=== PATIENT | male | born 1995 | race Caucasian/White ===

== ENCOUNTER 2018-06-20 16:11 | Emergency (ER) | payer OTHER ==
[~2018-06-20] VITALS: Ht 188 cm; Wt 86.4 kg
[2018-06-20 16:19] VITALS: BP 130/85
== END 2018-06-20 17:20 | disposition home or self-care (01) ==
LOC: ER 16:11
DX: S05.12XA Contusion of eyeball and orbital tissues, left eye, initial encounter (principal); S05.11XA Contusion of eyeball and orbital tissues, right eye, initial encounter; X58.XXXA Exposure to other specified factors, initial encounter; Y93.89 Activity, other specified; Y92.89 Other specified places as the place of occurrence of the external cause; Y99.8 Other external cause status
CPT/HCPCS: 99281

== ENCOUNTER 2018-06-23 13:55 | Emergency (ER) | payer OTHER ==
[~2018-06-23] VITALS: Ht 188 cm; Wt 88.5 kg
[2018-06-23 14:12] VITALS: BP 135/57
== END 2018-06-23 14:58 | disposition home or self-care (01) ==
LOC: ER 13:56
DX: H59.34 Postprocedural hematoma of eye and adnexa following other procedure (principal); H10.89 Other conjunctivitis; Z98.890 Other specified postprocedural states
CPT/HCPCS: 99281

== ENCOUNTER 2021-11-11 22:30 | Emergency (ER) | payer MEDICAID, OTHER ==
[~2021-11-11] VITALS: Ht 188 cm; Wt 78.2 kg
[2021-11-11] MEDS ORDERED: HYDR100T27 PO (23:35)
[2021-11-11] MEDS ORDERED: SERT-434 PO (23:35)
[2021-11-11] MEDS ORDERED: morphine 4 MG/ML inj SYRINge IV ONE (23:50)
[2021-11-11] MEDS ORDERED: ketorolac tromethamine 15mg/ml inj. IV ONE (23:50)
[2021-11-11] MEDS ORDERED: ondansetron/PF 4mg/2ml inj IV ONE (23:50)
[2021-11-12] LABS: BASOPHILS # (AUTO) 0.1 X10'3 (0-0.2); BASOPHILS % (AUTO) 0.9 % (0-1); EOSINOPHILS # (AUTO) 0.1 X10'3 (0-0.9); EOSINOPHILS % (AUTO) 1.2 % (0-6); HEMATOCRIT 44.4 % (42.0-52.0); HEMOGLOBIN 14.6 g/dl (14.0-17.9); LYMPHOCYTES # (AUTO) 2.3 X10'3 (1.1-4.8); LYMPHOCYTES % (AUTO) 20.2 % (21-51); MEAN CORPUSCULAR HEMOGLOBIN 27.6 PG (27.0-31.0); MEAN CORPUSCULAR HGB CONC 32.8 g/dL (33.0-36.5); MEAN CORPUSCULAR VOLUME 84.2 FL (78-98); MEAN PLATELET VOLUME 8.5 FL (7.4-10.4); MONOCYTES # (AUTO) 0.9 X10'3 (0-0.9); MONOCYTES % (AUTO) 7.7 % (2-12); NEUTROPHILS # (AUTO) 8.1 X10'3 (1.8-7.7); PLATELET COUNT 295 X10'3 (140-440); RED BLOOD COUNT 5.27 X10'6 (4.70-6.10); RED CELL DISTRIBUTION WIDTH 15.4 % (11.5-14.5); WHITE BLOOD COUNT 11.5 X10'3 (4.5-11.0)
[2021-11-12 00:15] LABS: ALBUMIN 3.6 G/DL (3.4-5.0); ANION GAP 7 (8-16); ASPARTATE AMINO TRANSFERASE 17 U/L (10-37); BILIRUBIN,TOTAL 0.2 MG/DL (0.1-1.0); BLOOD UREA NITROGEN 13 MG/DL (7-18); BUN/CREATININE RATIO 11.6 (5.4-32.0); CALCIUM 8.9 MG/DL (8.5-10.1); CHLORIDE 106 MMOL/L (99-107); CREATININE 1.12 MG/DL (0.60-1.10); GLUCOSE 117 MG/DL (70-104); POTASSIUM 4.3 MMOL/L (3.5-5.1); SODIUM 141 MMOL/L (135-145); TOTAL PROTEIN 7.3 G/DL (6.4-8.2); eGFR 79 ML/MIN
[2021-11-12 00:16] LABS: ALANINE AMINOTRANSFERASE 21 U/L (12-78); ALKALINE PHOSPHATASE 61 IU/L (46-116); LIPASE 68 U/L (73-393)
[2021-11-12 04:32] LABS: COLOR,URINE YELLOW (Yellow); GLUCOSE, URINE NEGATIVE (Neg); KETONES,URINE NEGATIVE (Neg); LEUKOCYTE ESTERASE ,URINE NEGATIVE (Neg); NITRITES, URINE NEGATIVE (Neg); OCCULT BLOOD,URINE MODERATE (Neg); PH,URINE 7.5 (4.8-8.0); PROTEIN,URINE TRACE mg/dl (Neg); UROBILINOGEN,URINE 0.2 E.U/dL (0.2-1.0)
[2021-11-12 04:37] LABS: CLARITY,URINE SLIGHTLY CLOUDY (Clear); UA COLLECTION TYPE CLN CATCH MIDSTREAM
[2021-11-12 04:43] LABS: WBC,URINE 0-4 /HPF (0-4)
[2021-11-12 04:45] LABS: RBC,URINE 50-100 /HPF (0-2)
[2021-11-12 04:49] LABS: BACTERIA,URINE NONE SEEN /HPF (Neg); MUCUS STRANDS NONE SEEN /LPF (Neg); SQUAMOUS EPITHELIAL CELL,UR NONE SEEN /LPF (FEW)
[2021-11-12 05:13] VITALS: BP 125/76
== END 2021-11-12 05:15 | disposition home or self-care (01) ==
LOC: ER 22:30
DX: N50.89 Other specified disorders of the male genital organs (principal); R33.9 Retention of urine, unspecified; R10.30 Lower abdominal pain, unspecified; F17.200 Nicotine dependence, unspecified, uncomplicated; Z72.89 Other problems related to lifestyle; Z79.899 Other long term (current) drug therapy
CPT/HCPCS: 36415; 80053; 81001; 83690; 85025; 87491; 87591; 96374; 96375; 99285; J1885; J2270; J2405

== ENCOUNTER 2022-09-03 10:36 | Emergency (ER) | payer MEDICAID ==
[~2022-09-03] VITALS: Ht 188 cm; Wt 89.0 kg
[~2022-09-03 10:36] MED LIST: HYDR100T27 PO; SERT-434 PO
[2022-09-03 10:51] VITALS: BP 113/64
[2022-09-03] MEDS ORDERED: CefTRIAXone 500MG IM Kit w/LIDOcaine IM ONE (11:40)
[2022-09-03] MEDS ORDERED: azithromycin 250mg tablet PO ONE (11:40)
== END 2022-09-03 12:00 | disposition home or self-care (01) ==
LOC: ER 10:36
DX: A64 Unspecified sexually transmitted disease (principal); Z72.89 Other problems related to lifestyle; Z79.899 Other long term (current) drug therapy
CPT/HCPCS: 36415; 87491; 87591; 96372; 99284; J0696

== ENCOUNTER 2022-11-19 19:28 | Emergency (ER) | payer MEDICAID ==
[~2022-11-19] VITALS: Ht 188 cm; Wt 86.4 kg
[2022-11-19 19:33] VITALS: BP 129/78; PULSE 97; RESP 20; TEMP 98.7; O2SAT 96
[2022-11-19] MEDS ORDERED: LIDOcaine 1% W/epiNEPHrine 1:100,000 20ml vial IJ ONE (22:25)
[2022-11-19] MEDS ORDERED: TETanus/Pertussis (Acell)/Diphther VAC/PF (Tdap-Adult) 0.5ml syringe IMVAC ONE (22:25)
[2022-11-19] MEDS ORDERED: cephalexin 250mg capsule PO ONE (22:30)
[2022-11-19] MEDS ORDERED: DOXYCYCLINE 100MG CAPSULE PO STA (22:30)
[2022-11-19] MEDS ORDERED: DOXY-356 PO (22:30)
[2022-11-19] MEDS ORDERED: CEPH250T PO (22:30)
[2022-11-19] MEDS ORDERED: BUPR1FIL3 SL (23:11)
== END 2022-11-19 23:26 | disposition home or self-care (01) ==
LOC: ER 19:29
DX: L02.512 Cutaneous abscess of left hand (principal)
CPT/HCPCS: 10060; 90471; 90715; 99283

== ENCOUNTER 2024-03-23 18:24 | Emergency (ER) | payer MEDICAID ==
[~2024-03-23] VITALS: Ht 188 cm; Wt 117.6 kg
[~2024-03-23 18:24] MED LIST changes: +HYDR100T12 PO; -HYDR100T27 PO; +NALO4SPR BOTHNARES
[2024-03-23 18:47] VITALS: BP 143/90; PULSE 93; RESP 16; TEMP 97.8; O2SAT 96
== END 2024-03-23 20:42 | disposition home or self-care (01) ==
LOC: ER 18:24
DX: S62.324A Displaced fracture of shaft of fourth metacarpal bone, right hand, initial encounter for closed fracture (principal); Z79.899 Other long term (current) drug therapy; X58.XXXA Exposure to other specified factors, initial encounter; Y93.89 Activity, other specified; Y92.89 Other specified places as the place of occurrence of the external cause; Y99.8 Other external cause status
CPT/HCPCS: 29125; 73130; 99283; A6258; A6446; A6449

== ENCOUNTER 2025-01-01 21:20 | Emergency (ER) | payer MEDICAID ==
[~2025-01-01] VITALS: Ht 188 cm; Wt 145.0 kg
[2025-01-01 21:21] VITALS: TEMP 98.2
[2025-01-02 00:16] LABS: MEAN PLATELET VOLUME 8.4 FL (7.4-10.4); RED CELL DISTRIBUTION WIDTH 15.3 % (11.5-14.5)
[2025-01-02 00:28] LABS: CREATININE 0.83 MG/DL (0.60-1.10); TOTAL CARBON DIOXIDE 25.7 MMOL/L (24-32); eCRCL 151 ML/MIN; eGFR > 90 ML/MIN
[2025-01-02 00:34] LABS: ETHANOL < 10 MG/DL (<10)
--- NOTE | 2025-01-02 00:39 | Physician Documentation ---
History of Present Illness ~ Chief Complaint: Head Injury Stated Complaint: FALL Time Seen by MD: 00:00 OK to notify your PCP?: No Primary Medical Doctor: [facility] HPI 29-year-old male who is brought in by EMS with possible head injury. Unable to obtain any history from the patient, he will not speak Per EMS he reportedly fell and struck his head. Per nursing staff, he was talking when he was in the emergency department waiting room. He then became very sleepy and had to be awoken with a sternal rub. At that time he reported a long history of benzodiazepine use and said he had been out of his medication for several days. Time of my evaluation he is sleeping and is difficult to arouse except to painful stimuli. He will not answer my questions Tetanus within 5 years?: No Medication Reconciliation Allergies: Coded Allergies: No Known Allergies (Unverified , 01/02/25) Scheduled Hydralazine HCl (Hydralazine HCl), 1 TAB PO Q8H, (Reported) Naloxone HCl (Narcan), 1 SPRAYS BOTHNARES ONCE Sertraline HCl (Sertraline HCl), 1 TAB PO DAILY, (Reported) Past Medical History Past Medical History: *RENAL/*, *INFECTIOUS DZ*, [place] Past Surgical History: no surgical history Alcohol Use: Occasionally Lives with: Family Lives In: Home Occupation: employed, student Review of Systems Unable to obtain complete ROS: altered mental status Physical Exam Vital Signs: Temperature: 98.2, Heart Rate: 104, Respiratory Rate: 18, BP: 151/60, Pulse Oximetry: 95, Weight: 145.000 Oxygen Flow Rate: 0 Physical Exam General: This is a overall healthy-appearing young man who was sleeping when I enter the room HEENT: Atraumatic, no obvious hematoma or abrasions to the scalp. Pupils are 3 mm and he has dysconjugate gaze. oropharynx is dry Heart: Regular rate and rhythm, normal-appearing peripheral perfusion Lungs: Clear breath sounds bilateral, normal work of breathing, normal oxygen saturation on room air. No respiratory depression Abdomen: Soft, nondistended, no reaction to palpation of the abdomen Extremities: No traumatic findings Neuro: The patient is not alert, awakens only to painful stimuli and sternal rub, does not answer questions, quickly falls asleep Psychiatric: Sedated Progress Results/Orders Results/Orders Completed Orders - HALLEY TONEY MD Normal Saline 1000ml (0.9% Sodium Chlori (01/02/25 07:15) Medications Received in ER Medications (Trade) Dose Ordered Sig/Anju Route PRN Reason Start Time Stop Time Status Last Admin Dose Admin Sodium Chloride 1,000 ml @ 1,000 mls/hr ONCE ONCE IV 01/02/25 07:15 01/02/25 07:47 DC 01/02/25 07:18 1,000 MLS/HR Vital Signs 01/01/25 01/02/25 01/02/25 01/02/25 21:21 01:00 02:30 04:00 Temp 98.2 Pulse 104 73 71 74 Resp 18 14 12 12 B/P (MAP) 151/60 142/100 (114) 132/98 (109) 133/90 (104) Pulse Ox 95 98 95 96 O2 Flow Rate 0 01/02/25 01/02/25 01/02/25 05:00 06:45 07:35 Pulse 76 74 72 Resp 12 12 12 B/P (MAP) 145/95 (112) 106/64 (78) 102/67 Pulse Ox 96 97 97 O2 Flow Rate 0 Laboratory Tests Test 01/02/25 00:07 01/02/25 02:07 White Blood Count 9.2 Red Blood Count 4.91 Hemoglobin 13.2 L Hematocrit 39.2 L Mean Corpuscular Volume 79.8 Mean Corpuscular Hemoglobin 26.8 L Mean Corpuscular Hemoglobin Concent 33.6 Red Cell Distribution Width 15.3 H Platelet Count 261 Mean Platelet Volume 8.4 Neutrophils (%) (Auto) 41.4 L Lymphocytes (%) (Auto) 44.9 Monocytes (%) (Auto) 9.8 Eosinophils (%) (Auto) 3.0 Basophils (%) (Auto) 0.9 Neutrophils # (Auto) 3.8 Lymphocytes # (Auto) 4.1 Monocytes # (Auto) 0.9 Eosinophils # (Auto) 0.3 Basophils # (Auto) 0.1 CBC Comment Sodium Level 141 Potassium Level 3.9 Chloride Level 106 Carbon Dioxide Level 25.7 Anion Gap 9 Blood Urea Nitrogen 19 H Creatinine 0.83 Estimated GFR/1.73 m2 > 90 BUN/Creatinine Ratio 22.9 H Glucose Level 105 H Calcium Level 8.8 Total Bilirubin 0.4 Aspartate Amino Transf (AST/SGOT) 25 Alanine Aminotransferase (ALT/SGPT) 32 Alkaline Phosphatase 88 Total Protein 7.8 Albumin 3.8 Globulin 4.0 Albumin/Globulin Ratio 1.0 L Chemistry Comments Ethyl Alcohol Level < 10 Urine Opiates Screen Negative Urine Methadone Screen Positive Urine Fentanyl Screen Negative Urine Barbiturates Screen Negative Urine Phencyclidine Screen Negative Urine Amphetamines Screen Positive Urine Benzodiazepines Screen Positive Urine Cocaine Screen Positive Urine Cannabinoids Screen Negative Drug Screen Comment EKG/XRAY/CT/US/VASC/MRI CT : Impression I personally interpreted the CT scan, and this shows no acute hemorrhage Medical Decision Making Differential Dx:Considerations: Include: Closed head injury, Abrasion, Contusion, Intoxication-alcohol, Intoxication-other drug, Substance abuse disorder Additional Comment The patient presents with a reported head injury, but by time of my evaluation is very sleepy and difficult to awaken. He was taken for a head CT which shows no acute hemorrhage or other acute abnormality. Overall he appears to have encephalopathy, his presentation seems more consistent with substance use or medication overdose. Labs are unremarkable. Urine drug screen is positive for multiple substances. Overall his presentation seems consistent with a polysubstance overdose. His vital signs remained stable he had no hypoxia or respiratory depression while observed here in the emergency department. Plan: Observation until he wakes up, and discharge if his mental status improves. The patient was signed out at shift change with the above plan. Donn Lamas MD Departure Disposition: 01 HOME / SELF CARE / HOMELESS Impression: Primary Impression: Polysubstance abuse Additional Impression: Altered mental status Additional Impression Text Lee: Received in sign-out from the night physician 29-year-old male who presented for altered mental status. Initially was very lethargic. CT head was unremarkable labs were within normal limits tox screen showing amphetamines, cocaine, benzos and methadone. Signed out pending metabolism of likely substanc es contributing to his lethargy. I evaluated the patient at 7:30 a.m. he is awake alert oriented and has normal vital signs. Condition: Improved Referrals: NO PRIMARY CARE PROVIDER (PCP) Education Educated: Patient Educated regarding: diagnosis, need for follow up Signature Scribe Signature: na Attestation: DONN Herbert MD Jan 02, 2025 00:39 HALLEY TONEY MD Jan 02, 2025 07:30
--- NOTE | 2025-01-02 00:59 | RADIOLOGY REPORT ---
EXAM: CT CT HEAD INDICATION: Fall, head injury, altered mental status TECHNIQUE: CT of the head without intravenous contrast. Radiation Dose Information: CT Dose: CTDI volume is 62.5 mGy. Dose-length product is 1206.81 mGy*cm The dose indicators for CT are the volume Computed Tomography (CT) Dose Index (CTDIvol) and the Dose Length Product (DLP), and are measured in units of mGy and mGy-cm, respectively. These indicators are not patient dose, but values generated from the CT scanner acquisition factors. The report includes radiation exposure data for exposures received during this examination. COMPARISON: None FINDINGS: There is no evidence of acute intracranial hemorrhage, extra-axial collection, mass effect, midline shift, herniation or hydrocephalus. The ventricles, sulci and cisterns are age appropriate. The wu-white differentiation is intact. The visualized paranasal sinuses and mastoid air cells are clear. The surrounding soft tissues and osseous structures are unremarkable. IMPRESSION: No acute intracranial abnormality.
[2025-01-02 02:29] LABS: URINE AMPHETAMINE SCREEN POSITIVE (Neg); URINE BARBITUATE SCREEN NEGATIVE (Neg); URINE BENZODIAZEPINES SCREEN POSITIVE (Neg); URINE CANNABINOID SCREEN NEGATIVE (Neg); URINE COCAINE SCREEN POSITIVE (Neg); URINE METHADONE SCREEN POSITIVE (Neg); URINE OPIATE SCREEN NEGATIVE (Neg); URINE PHENCYCLIDINE SCREEN NEGATIVE (Neg)
[2025-01-02] MEDS: normal saline 1000ml 1,000 ML IV ONE (07:18)
[2025-01-02 07:35] VITALS: BP 102/67; PULSE 72; RESP 12; O2SAT 97
== END 2025-01-02 07:47 | disposition home or self-care (01) ==
LOC: ER 21:20
DX: F19.10 Other psychoactive substance abuse, uncomplicated (principal); R41.82 Altered mental status, unspecified; Z79.899 Other long term (current) drug therapy
CPT/HCPCS: 36415; 70450; 80053; 80305; 80320; 85025; 99285; J7030